=== PATIENT | male | born 1945 | race Caucasian/White ===

== ENCOUNTER 2021-06-09 20:46 | Inpatient (IN) | payer MEDICARE, MEDICAID ==
[~2021-06-09] VITALS: Ht 175.3 cm; Wt 61.3 kg
[2021-06-09] MEDS ORDERED: temazepam 15mg capsule PO PRN (21:00)
[2021-06-09] MEDS ORDERED: morphine 4 MG/ML inj SYRINge IV ONE (21:10)
[2021-06-09 21:40] LABS: BASOPHILS % (AUTO) 0.3 % (0-1); EOSINOPHILS # (AUTO) 0.3 X10'3 (0-0.9); EOSINOPHILS % (AUTO) 2.9 % (0-6); HEMATOCRIT 29.6 % (42.0-52.0); HEMOGLOBIN 10.1 g/dl (14.0-17.9); LYMPHOCYTES # (AUTO) 1.6 X10'3 (1.1-4.8); LYMPHOCYTES % (AUTO) 13.7 % (21-51); MEAN CORPUSCULAR HEMOGLOBIN 28.9 PG (27.0-31.0); MEAN PLATELET VOLUME 7.2 FL (7.4-10.4); MONOCYTES # (AUTO) 1.1 X10'3 (0-0.9); MONOCYTES % (AUTO) 9.7 % (2-12); NEUTROPHILS # (AUTO) 8.3 X10'3 (1.8-7.7); NEUTROPHILS % (AUTO) 73.4 % (42-75); PLATELET COUNT 265 X10'3 (140-440); RED BLOOD COUNT 3.49 X10'6 (4.70-6.10); RED CELL DISTRIBUTION WIDTH 13.5 % (11.5-14.5); WHITE BLOOD COUNT 11.4 X10'3 (4.5-11.0)
[2021-06-09 21:54] LABS: APTT 26 SECONDS (22-32)
[2021-06-09 21:58] LABS: ALANINE AMINOTRANSFERASE 67 U/L (12-78); ALBUMIN 2.8 G/DL (3.4-5.0); ALBUMIN/GLOBULIN RATIO 0.6 (1.1-1.5); ALKALINE PHOSPHATASE 94 IU/L (46-116); ANION GAP 8 (8-16); ASPARTATE AMINO TRANSFERASE 56 U/L (10-37); BILIRUBIN,TOTAL 0.5 MG/DL (0.1-1.0); BLOOD UREA NITROGEN 15 MG/DL (7-18); BUN/CREATININE RATIO 15.5 (5.4-32.0); CALCIUM 8.6 MG/DL (8.5-10.1); CHLORIDE 100 MMOL/L (99-107); CREATININE 0.97 MG/DL (0.60-1.10); GLUCOSE 96 MG/DL (70-104); LIPASE 56 U/L (73-393); MAGNESIUM 1.9 MG/DL (1.5-2.4); SODIUM 133 MMOL/L (135-145); TOTAL PROTEIN 7.4 G/DL (6.4-8.2); eGFR 76 ML/MIN
[2021-06-09] MEDS ORDERED: acetaminophen 325mg tablet PO PRN ×2 (22:00)
[2021-06-09] MEDS ORDERED: HYDROcodone/acetaminophen 5mg/325mg tablet PO PRN (22:00)
[2021-06-09] MEDS ORDERED: magnesium 4gm in 100ml NS 100 ML IV PRN (22:00)
[2021-06-09] MEDS ORDERED: morphine 2 MG/ML inj. syringe IV PRN (22:00)
[2021-06-09] MEDS ORDERED: potassium CL 10mEq/100ml bag 100 ML IV PRN (22:00)
[2021-06-09] MEDS ORDERED: mag hydrox/Alum hydrox/simeth 30ml oral suspension PO PRN (22:00)
[2021-06-09] MEDS ORDERED: magnesium Cl slow-release 64mg tablet PO PRN (22:00)
[2021-06-09] MEDS ORDERED: magnesium hydroxide 30ml (MOM) UD suspension PO PRN (22:00)
[2021-06-09] MEDS ORDERED: ondansetron/PF 4mg/2ml inj IV PRN (22:00)
[2021-06-09] MEDS ORDERED: magnesium 2GM in 50ml NS 50 ML IV PRN (22:00)
[2021-06-09] MEDS ORDERED: potassium Cl 20 mEq SR tablet PO PRN ×2 (22:00)
[2021-06-09] MEDS ORDERED: CefTRIAXone 2gm/D5W 50ml BAG 50 ML IV ONE (22:05)
[2021-06-09] MEDS ORDERED: NO HOME MEDS (22:21)
[2021-06-09] MEDS: normal saline 1000ml 1,000 ML IV SCH (22:56)
[2021-06-10] MEDS: normal saline 1000ml 1,000 ML IV SCH ×2 (01:48→18:00)
[2021-06-10 04:00] VITALS: BP 124/84
[2021-06-10 05:58] LABS: BASOPHILS % (AUTO) 0.3 % (0-1); EOSINOPHILS # (AUTO) 0.3 X10'3 (0-0.9); EOSINOPHILS % (AUTO) 2.9 % (0-6); HEMATOCRIT 31.4 % (42.0-52.0); HEMOGLOBIN 10.4 g/dl (14.0-17.9); LYMPHOCYTES # (AUTO) 1.3 X10'3 (1.1-4.8); LYMPHOCYTES % (AUTO) 14.9 % (21-51); MEAN CORPUSCULAR HEMOGLOBIN 28.7 PG (27.0-31.0); MEAN CORPUSCULAR HGB CONC 33.1 g/dL (33.0-36.5); MEAN CORPUSCULAR VOLUME 86.5 FL (78-98); MEAN PLATELET VOLUME 7.4 FL (7.4-10.4); MONOCYTES # (AUTO) 0.8 X10'3 (0-0.9); MONOCYTES % (AUTO) 8.6 % (2-12); NEUTROPHILS # (AUTO) 6.6 X10'3 (1.8-7.7); NEUTROPHILS % (AUTO) 73.3 % (42-75); PLATELET COUNT 266 X10'3 (140-440); RED BLOOD COUNT 3.63 X10'6 (4.70-6.10); RED CELL DISTRIBUTION WIDTH 14.1 % (11.5-14.5)
--- NOTE | 2021-06-10 07:11 | NUR ---
Problems reprioritized. Patient report given, questions answered & plan of care reviewed with Toño MCDERMOTT.
[2021-06-10 07:19] LABS: ALKALINE PHOSPHATASE 108 IU/L (46-116); BILIRUBIN,TOTAL 0.5 MG/DL (0.1-1.0); POTASSIUM 4.6 MMOL/L (3.5-5.1)
[2021-06-10 07:31] LABS: ALANINE AMINOTRANSFERASE 63 U/L (12-78); ALBUMIN 2.9 G/DL (3.4-5.0); ALBUMIN/GLOBULIN RATIO 0.6 (1.1-1.5); ANION GAP 5 (8-16); ASPARTATE AMINO TRANSFERASE 56 U/L (10-37); BLOOD UREA NITROGEN 16 MG/DL (7-18); CALCIUM 8.5 MG/DL (8.5-10.1); CHLORIDE 103 MMOL/L (99-107); CREATININE 1.07 MG/DL (0.60-1.10); GLUCOSE 109 MG/DL (70-104); SODIUM 134 MMOL/L (135-145); TOTAL CARBON DIOXIDE 25.9 MMOL/L (24-32); TOTAL PROTEIN 7.5 G/DL (6.4-8.2); eGFR 68 ML/MIN
[2021-06-10] MEDS: K and/or MAG REPLACEMENT MC SCH ×2 (08:00→20:00)
[2021-06-10 08:03] VITALS: BP 93/50
[2021-06-10 12:59] VITALS: BP 115/65
[2021-06-10 18:00] VITALS: BP 106/58
--- NOTE | 2021-06-10 18:08 | NUR ---
Received report from Kalyan MCDERMOTT
--- NOTE | 2021-06-10 18:24 | NUR ---
Problems reprioritized. Patient report given, questions answered & plan of care reviewed with Shayla MCDERMOTT.
[2021-06-10] MEDS: HYDROcodone/acetaminophen 10/325mg tab PO PRN (19:32)
[2021-06-10] MEDS: tamsulosin 0.4mg capsule PO SCH (20:32)
[2021-06-10] MEDS: morphine 2 MG/ML inj. syringe IV PRN (23:27)
[2021-06-11] VITALS (18 sets, daily range): BP systolic 88–140; BP diastolic 42–72
[2021-06-11] MEDS: normal saline 1000ml 1,000 ML IV SCH ×2 (04:00→14:00)
[2021-06-11 05:59] LABS: BASOPHILS % (AUTO) 0.6 % (0-1); EOSINOPHILS # (AUTO) 0.3 X10'3 (0-0.9); EOSINOPHILS % (AUTO) 4.4 % (0-6); HEMATOCRIT 26.2 % (42.0-52.0); HEMOGLOBIN 8.8 g/dl (14.0-17.9); LYMPHOCYTES # (AUTO) 1.3 X10'3 (1.1-4.8); LYMPHOCYTES % (AUTO) 19.1 % (21-51); MEAN CORPUSCULAR HEMOGLOBIN 29.1 PG (27.0-31.0); MEAN CORPUSCULAR HGB CONC 33.7 g/dL (33.0-36.5); MEAN CORPUSCULAR VOLUME 86.4 FL (78-98); MEAN PLATELET VOLUME 7.3 FL (7.4-10.4); MONOCYTES # (AUTO) 0.9 X10'3 (0-0.9); MONOCYTES % (AUTO) 12.2 % (2-12); NEUTROPHILS # (AUTO) 4.5 X10'3 (1.8-7.7); NEUTROPHILS % (AUTO) 63.7 % (42-75); PLATELET COUNT 224 X10'3 (140-440); RED BLOOD COUNT 3.03 X10'6 (4.70-6.10); RED CELL DISTRIBUTION WIDTH 13.5 % (11.5-14.5)
[2021-06-11 06:22] LABS: ALANINE AMINOTRANSFERASE 49 U/L (12-78); ALBUMIN 2.4 G/DL (3.4-5.0); ALBUMIN/GLOBULIN RATIO 0.6 (1.1-1.5); ALKALINE PHOSPHATASE 91 IU/L (46-116); ANION GAP 6 (8-16); ASPARTATE AMINO TRANSFERASE 40 U/L (10-37); BILIRUBIN,TOTAL 0.2 MG/DL (0.1-1.0); BLOOD UREA NITROGEN 20 MG/DL (7-18); BUN/CREATININE RATIO 16.4 (5.4-32.0); CALCIUM 8.1 MG/DL (8.5-10.1); CHLORIDE 106 MMOL/L (99-107); CREATININE 1.22 MG/DL (0.60-1.10); GLUCOSE 125 MG/DL (70-104); POTASSIUM 4.4 MMOL/L (3.5-5.1); SODIUM 136 MMOL/L (135-145); TOTAL CARBON DIOXIDE 23.6 MMOL/L (24-32); TOTAL PROTEIN 6.3 G/DL (6.4-8.2); eGFR 58 ML/MIN
[2021-06-11] MEDS ORDERED: iohexol 300 MG/1 ML 50ml polymer ONE (07:08)
--- NOTE | 2021-06-11 07:14 | NUR ---
Patient in room [facility] 348. I have received report from Shayla MCDERMOTT and had the opportunity to ask questions and assume patient care.
[2021-06-11] MEDS ORDERED: midazolam 1 mg/ML 2ml injection ONE (07:35)
[2021-06-11] MEDS ORDERED: fentaNYL/PF 50MCG/1 ML 2ML syringe ONE (07:35)
[2021-06-11] MEDS ORDERED: ceFAZolin 1000mg inj ONE ×2 (07:43)
[2021-06-11] MEDS ORDERED: propofol inj 20 ML IV ONE (07:43)
[2021-06-11] MEDS ORDERED: ePHEDrine 50MG/ML INJ. ONE (07:45)
[2021-06-11] MEDS: K and/or MAG REPLACEMENT MC SCH ×2 (08:00→20:00)
[2021-06-11] MEDS ORDERED: proCHLORperazine 10 MG/2 ml inj IV PRN (08:10)
[2021-06-11] MEDS ORDERED: meperidine/PF 25mg/ml syringe IV PRN ×3 (08:10)
[2021-06-11] MEDS ORDERED: ringers solution, lacted 1,000 ML IV SCH (08:10)
[2021-06-11] MEDS ORDERED: morphine 2 MG/ML inj. syringe IV PRN (08:10)
[2021-06-11] MEDS ORDERED: ondansetron/PF 4mg/2ml inj IV PRN (08:10)
[2021-06-11] MEDS ORDERED: morphine 4 MG/ML inj SYRINge IV PRN (08:10)
--- NOTE | 2021-06-11 08:29 | NUR ---
Received from OR via HOSPITAL BED, accompanied by Anesthesiologist DR. OLGUIN and report given by Anesthesiolgist. PATIENT WIGGLING AROUND IN BED AND STATING HE "HAS TO PEE", ALTHOUGH HAVING A URINE CATHETER. DR. OLGUIN STATES DUE TO CAUTERIZATION, PATIENT MAY BE HAVING THIS SENSATION; HE ALSO STAES PATIENT IS NORMALLY DISORIENTED PRIOR TO SURGERY WELL. PATIENT HAS 20G PIV TO RIGHT WRIST, URINE CATHETER. VSS. 10L NC MASK. LR RUNNING AT 100ML/HR. WILL CONTINUE TO MONITOR.
--- NOTE | 2021-06-11 09:39 | NUR ---
REPORT GIVEN TO OCHOA. PATIENT TAKEN TO 348A. PATIENT DENIES PAIN. CLEARING SEDATION A LITTLE BETTER. STILL STATING URGE TO URINATE, EXTENSIVE EDUCATION GIVEN ON THE CAUTERIZATION AND THAT BEING A NORMAL SENSATION. PATIENT SENT WITH LOWER DENTURES.
--- NOTE | 2021-06-11 09:43 | NUR ---
Patient in room [facility] 348. I have received report from junior art director and had the opportunity to ask questions and assume patient care.
[2021-06-11] MEDS: morphine 2 MG/ML inj. syringe IV PRN ×2 (14:54→20:01)
--- NOTE | 2021-06-11 15:25 | NUR ---
WOUND INFECTION EDUCATION PROVIDED BY WOUND CARE 1. Patient instructed to call their primary doctor, or go the ED immediately if any of the following symptoms occur: * Increased pain in wound * Increase in drainage from the wound * Redness in the skin surrounding the wound * Warmth in the skin surrounding the wound * Bleeding from the wound * Temperature of 101 or greater 2. If any of these occur while in the hospital tell a nurse immediately. PRESSURE ULCER EDUCATION: DEFINITION: A pressure ulcer is an area of skin that breaks down when you stay in one position too long. The constant pressure against the skin reduces the blood flow to that area and the affected tissue dies. CAUSES: "Being bedridden or in a wheelchair "Fragile skin "Having a chronic condition, such as diabetes or vascular disease "Inability to move certain parts of your body without assistance "Older age "Incontinence of urine or stool SYMPTOMS: "A reddened area that DOES NOT turn white when pressed on - this can be the beginning of a pressure ulcer "A blister, deep sore or a crater - these can be advanced pressure ulcers FIRST AID: "Relieve the pressure on this area "Keep the area clean and dry "Call your primary doctor if you see any of the above symptoms "DO NOT massage the area "DO NOT use a donut shaped or ring shaped pillow- these actually interfere with the blood flow and cause complications PREVENTION: "Check for pressure ulcers everyday "Change position at least every two hours to relieve pressure "Use items that help relieve pressure- pillows, sheepskin, foam padding, and powders. "Keep skin clean and dry "Eat healthy well balanced meals "Exercise daily IF YOU SEE ANY OF THESE SYMPTOMS WHILE IN THE HOSPITAL - TELL YOUR NURSE IMMEDIATELY. IF YOU SEE ANY OF THESE SYMPTOMS WHILE AT HOME OR HAVE ANY QUESTIONS OR CONCERNS ABOUT PRESSURE ULCERS - CALL YOUR PRIMARY DOCTOR IMMEDIATELY. Addendum: 06/11/21 at 1526 by Sushila Vickers RN Amended: Links added.
--- NOTE | 2021-06-11 18:13 | NUR ---
Problems reprioritized. Patient report given, questions answered & plan of care reviewed with RUTH MCDERMOTT.
[2021-06-11] MEDS: mineral oil/petrolatum, white cream 113gm jar TP SCH (20:01)
[2021-06-11] MEDS: tamsulosin 0.4mg capsule PO SCH (20:01)
[2021-06-11] MEDS: HYDROcodone/acetaminophen 10/325mg tab PO PRN (23:17)
[2021-06-12] VITALS: BP 132/70
[2021-06-12 04:00] VITALS: BP 100/49
[2021-06-12 06:49] LABS: BASOPHILS % (AUTO) 0.5 % (0-1); EOSINOPHILS # (AUTO) 0.4 X10'3 (0-0.9); EOSINOPHILS % (AUTO) 5.5 % (0-6); HEMATOCRIT 25.2 % (42.0-52.0); HEMOGLOBIN 8.4 g/dl (14.0-17.9); LYMPHOCYTES # (AUTO) 1.4 X10'3 (1.1-4.8); LYMPHOCYTES % (AUTO) 22.2 % (21-51); MEAN CORPUSCULAR HEMOGLOBIN 28.6 PG (27.0-31.0); MEAN CORPUSCULAR HGB CONC 33.2 g/dL (33.0-36.5); MEAN CORPUSCULAR VOLUME 86.2 FL (78-98); MEAN PLATELET VOLUME 7.5 FL (7.4-10.4); MONOCYTES # (AUTO) 0.7 X10'3 (0-0.9); MONOCYTES % (AUTO) 10.6 % (2-12); NEUTROPHILS # (AUTO) 3.9 X10'3 (1.8-7.7); NEUTROPHILS % (AUTO) 61.2 % (42-75); PLATELET COUNT 213 X10'3 (140-440); RED BLOOD COUNT 2.92 X10'6 (4.70-6.10); RED CELL DISTRIBUTION WIDTH 13.8 % (11.5-14.5); WHITE BLOOD COUNT 6.4 X10'3 (4.5-11.0)
--- NOTE | 2021-06-12 06:49 | NUR ---
Patient in room [facility] 348. I have received report from yecenia trejo and had the opportunity to ask questions and assume patient care.
[2021-06-12 07:30] VITALS: BP 116/57
[2021-06-12 07:35] LABS: ALANINE AMINOTRANSFERASE 38 U/L (12-78); ALBUMIN 2.2 G/DL (3.4-5.0); ALBUMIN/GLOBULIN RATIO 0.6 (1.1-1.5); ALKALINE PHOSPHATASE 81 IU/L (46-116); ANION GAP 7 (8-16); ASPARTATE AMINO TRANSFERASE 36 U/L (10-37); BILIRUBIN,TOTAL 0.2 MG/DL (0.1-1.0); BLOOD UREA NITROGEN 15 MG/DL (7-18); BUN/CREATININE RATIO 12.8 (5.4-32.0); CALCIUM 7.6 MG/DL (8.5-10.1); CHLORIDE 108 MMOL/L (99-107); CREATININE 1.17 MG/DL (0.60-1.10); GLUCOSE 111 MG/DL (70-104); POTASSIUM 4.3 MMOL/L (3.5-5.1); SODIUM 139 MMOL/L (135-145); TOTAL CARBON DIOXIDE 24.5 MMOL/L (24-32); TOTAL PROTEIN 6.2 G/DL (6.4-8.2); eGFR 61 ML/MIN
[2021-06-12] MEDS: K and/or MAG REPLACEMENT MC SCH (08:00)
[2021-06-12] MEDS: mineral oil/petrolatum, white cream 113gm jar TP SCH (08:14)
[2021-06-12] MEDS ORDERED: DOCU-148 PO (09:07)
[2021-06-12] MEDS ORDERED: HYDR-3965 PO (09:07)
[2021-06-12] MEDS: normal saline 1000ml 1,000 ML IV SCH ×2 (10:00)
[2021-06-12 11:07] VITALS: BP 137/71
[2021-06-12] MEDS: HYDROcodone/acetaminophen 10/325mg tab PO PRN (11:37)
--- NOTE | 2021-06-12 14:57 | NUR ---
PT DISCHARGED IN STABLE CONDITION. LEFT FACILITY IN PRIVATE VEHICLE WITH . IV DC CANULA INTACT. BALDWIN CATH IN PLACE, EDUCATION PT ON BALDWIN CARE AND SWITCHING FROM LEG BAG TO NIGHT BAG. PT ADVISED TO CALL DR DELONG OFFICE WHEN HE GETS HOME TO MAKE FOLLOW UP APPT. PT STATES UNDERSTANDING. ALL BELONGINGS IN HAND. Addendum: 06/12/21 at 1459 by Arin Del Cid RN Amended: Links added.
== END 2021-06-12 14:45 | disposition home or self-care (01) | DRG 669 ==
LOC: ER 20:48 → ED HOLD 22:03 → SUR 3N 06-10 00:59
PROVIDERS: ADMIT Internal Medicine; ATTEND Family Medicine
PROC: 0TCB8ZZ Extirpation of Matter from Bladder, Via Natural or Artificial Opening Endoscopic (ICD-10-PCS; 2021-06-11)
PROC: BT141ZZ Fluoroscopy of Kidneys, Ureters and Bladder using Low Osmolar Contrast (ICD-10-PCS; 2021-06-11)
PROC: 0T5C8ZZ Destruction of Bladder Neck, Via Natural or Artificial Opening Endoscopic (ICD-10-PCS; principal; 2021-06-11 07:31)
DX: C64.9 Malignant neoplasm of unspecified kidney, except renal pelvis (principal); E87.1 Hypo-osmolality and hyponatremia; D62 Acute posthemorrhagic anemia; S37.22XA Contusion of bladder, initial encounter; Z20.822 Contact with and (suspected) exposure to COVID-19; N28.89 Other specified disorders of kidney and ureter; J44.9 Chronic obstructive pulmonary disease, unspecified; R31.0 Gross hematuria; S90.911A Unspecified superficial injury of right ankle, initial encounter; X58.XXXA Exposure to other specified factors, initial encounter; F17.210 Nicotine dependence, cigarettes, uncomplicated; R30.0 Dysuria; Y93.89 Activity, other specified; Y92.89 Other specified places as the place of occurrence of the external cause; Y99.8 Other external cause status; Z71.6 Tobacco abuse counseling
CPT/HCPCS: 36415; 71045; 74420; 76000; 80053; 82948; 83605; 83690; 83735; 85025; 85610; 85730; 86885; 86900; 86901; 86920; 87040; 87081; 87635; 93005; 96374; 97116; 97161; 97530; 99285; A4346; A4618; C1758; G0378; J0690; J0696; J2175; J2250; J2270; J2704; J3010; J3490; J7030; J7120; Q9967